=== PATIENT | male | born 1940 | race African-American/Black ===

== ENCOUNTER → 2017-11-07 | Outpatient (CLI) | payer MEDICARE, OTHER | END | disposition home or self-care (01) | LOC: MRI 08:25 | PROVIDERS: ATTEND Internal Medicine Gastroenterology | DX: G31.89 Other specified degenerative diseases of nervous system (principal); R90.82 White matter disease, unspecified; R42 Dizziness and giddiness | CPT/HCPCS: 70551 ==

== ENCOUNTER 2020-05-16 16:30 | Emergency (ER) | payer MEDICARE, OTHER ==
[~2020-05-16] VITALS: Ht 167.6 cm; Wt 73.0 kg
[2020-05-16] MEDS ORDERED: NITROGLYCERIN 0.4MG TABLET SL SL PRN (17:00)
[2020-05-16] MEDS ORDERED: SODIUM CHLORIDE 0.9% 1,000 ML IV ONE (17:00)
[2020-05-16] MEDS ORDERED: ASPIRIN 81MG TABLET PO ONE (17:00)
[2020-05-16 17:42] LABS: BASOPHILS % 1.1 % (0.0-2.0); EOSINOPHILS % 1.2 % (0.0-5.0); HEMATOCRIT. 30.1 % (42.0-52.0); HEMOGLOBIN. 10.2 g/dL (14.0-18.0); LYMPHOCYTES % 33.6 % (20.0-50.0); MEAN CORPUSCULAR HEMOGLOBIN 37.2 pg (28.0-32.0); MEAN CORPUSCULAR VOLUME 109.1 fL (80.0-94.0); MEAN PLATELET VOLUME 7.4 fl (7.4-10.4); MONOCYTES % 14.9 % (2.0-8.0); NEUTROPHILS % 49.2 % (40.0-76.0); PLATELET 89 x1000/uL (130-400); RED BLOOD CELL COUNT 2.76 mill/uL (4.7-6.1); RED CELL DISTRIBUTION WIDTH 13.2 % (11.6-14.6)
[2020-05-16] MEDS ORDERED: LORAZEPAM 2MG/ML CPJ IM ONE (17:45)
[2020-05-16 17:50] LABS: CHLORIDE 105 mEq/L (98-107)
[2020-05-16 17:52] LABS: ETHANOL BLOOD 267 mg/dL
[2020-05-16 20:00] VITALS: BP 123/68
== END 2020-05-16 21:30 | disposition home or self-care (01) ==
LOC: ER 16:30 → CANBEDREQ 23:31
DX: T51.0X1A Toxic effect of ethanol, accidental (unintentional), initial encounter (principal); R07.89 Other chest pain; I51.9 Heart disease, unspecified; F03.90 Unspecified dementia, unspecified severity, without behavioral disturbance, psychotic disturbance, mood disturbance, and anxiety; Z95.2 Presence of prosthetic heart valve; Y92.018 Other place in single-family (private) house as the place of occurrence of the external cause
CPT/HCPCS: 36415; 71045; 80053; 80320; 83880; 84484; 85025; 93005; 96360; 96372; 99285; J2060; J7030; G0480